=== PATIENT | female | born 1975 | race Caucasian/White ===

== ENCOUNTER 2017-12-27 22:55 | Emergency (ER) | payer SELFPAY ==
[~2017-12-27] VITALS: Ht 167.6 cm; Wt 66.8 kg
[2017-12-27] MEDS ORDERED: PREN-154 PO (23:14)
[2017-12-28 01:34] LABS: HEMATOCRIT 37.5 % (36-46); HEMOGLOBIN 12.9 g/dL (12.0-16.0); MEAN CORPUSCULAR HEMOGLOBIN 32.5 pg (26.0-34.0); MEAN CORPUSCULAR HGB CONC 34.3 G/dL (31.0-37.0); MEAN CORPUSCULAR VOLUME 95 fL (80-100); PLATELET COUNT (AUTO) 298 K/uL (150-450); RED BLOOD CELL COUNT(AUTO) 3.96 MIL/uL (4.00-5.20); RED CELL DISTRIBUTION WIDTH 13.6 % (11.5-14.5)
[2017-12-28 02:17] VITALS: BP 121/78
[2017-12-28 02:20] LABS: BAND NEUTROPHILS % (MANUAL) 0 % (0-5); LYMPHOCYTES % (MANUAL) 65 % (22-44); MONOCYTES % (MANUAL) 5 % (2-9); SEGMENTED NEUTROPHILS % 30 % (40-70)
== END 2017-12-28 02:46 | disposition home or self-care (01) ==
LOC: EMS 22:56
DX: O20.0 Threatened abortion (principal); Z3A.01 Less than 8 weeks gestation of pregnancy
CPT/HCPCS: 76801; 76817; 86901; 99285

== ENCOUNTER 2018-02-22 02:31 | Emergency (ER) | payer MEDICAID, OTHER ==
[~2018-02-22] VITALS: Ht 167.6 cm; Wt 71.8 kg
[~2018-02-22 02:31] MED LIST: PREN-154 PO
[2018-02-22] MEDS: ONDANSETRON HCL 4 MG/2 ML VIAL IVP ONE (05:06)
[2018-02-22] MEDS: SODIUM CHLORIDE 0.9% 1,000 ML IV ONE (05:06)
[2018-02-22] MEDS: MORPHINE SULFATE 4 MG/ML SYRINGE IVP ONE (05:06)
[2018-02-22 05:41] LABS: APPEARANCE,URINE CLOUDY (CLEAR); BASOPHILS % (AUTO) 0.3 % (0.0-2.0); BILIRUBIN,URINE NEGATIVE (NEGATIVE); EOSINOPHILS % (AUTO) 0.5 % (1.0-6.0); GLUCOSE, URINE (UA) NEGATIVE (NEGATIVE); HEMOGLOBIN 14.1 g/dL (12.0-16.0); KETONES,URINE NEGATIVE (NEGATIVE); LEUKOCYTE ESTERASE ,URINE NEGATIVE (NEGATIVE); LYMPHOCYTES # (AUTO) 1.7 K/uL (1.0-4.8); LYMPHOCYTES % (AUTO) 19.9 % (22.0-44.0); MEAN CORPUSCULAR HEMOGLOBIN 32.8 pg (26.0-34.0); MEAN CORPUSCULAR HGB CONC 34.4 G/dL (31.0-37.0); MEAN CORPUSCULAR VOLUME 95 fL (80-100); MONOCYTES # (AUTO) 0.5 K/uL (0.1-1.0); MONOCYTES % (AUTO) 5.6 % (2.0-9.0); NEUTROPHILS # (AUTO) 6.2 K/uL (1.8-7.7); NEUTROPHILS % (AUTO) 73.7 % (40.0-70.0); NITRATE,URINE POSITIVE (NEGATIVE); OCCULT BLOOD,URINE TRACE (NEGATIVE); PLATELET COUNT (AUTO) 286 K/uL (150-450); PROTEIN,URINE NEGATIVE (NEGATIVE); RED CELL DISTRIBUTION WIDTH 13.7 % (11.5-14.5); UROBILINOGEN,URINE 0.2 mg/dL (<=1.0)
[2018-02-22 05:46] LABS: ANION GAP 11 mmol/L (8-16); CALCIUM, TOTAL 9.3 mg/dL (8.8-10.5); CARBON DIOXIDE 27 mmol/L (22-29); CHLORIDE 101 mmol/L (98-107); CREATININE 0.78 mg/dL (0.60-1.30); GLOMERULAR FILTR. RATE CALC > 60 mL/min (>60); GLUCOSE,RANDOM 128 mg/dL (70-110); POTASSIUM 4.2 mmol/L (3.5-5.1); SODIUM SERUM 139 mmol/L (136-145); UREA NITROGEN, BLOOD 12 mg/dL (7-18)
[2018-02-22 05:53] LABS: ALANINE AMINOTRANSFERASE 37 U/L (12-78); ALBUMIN 4.4 g/dL (3.4-5.0); ALKALINE PHOSPHATASE 68 U/L (46-116); ASPARTATE AMINOTRANSFERASE 23 U/L (15-37); BACTERIA,URINE Many /HPF (None Seen); BILIRUBIN,TOTAL 0.4 mg/dL (0.1-1.0); SQUAMOUS EPITHELIAL CELL,UR Rare /LPF (None Seen)
[2018-02-22] MEDS: KETOROLAC TROMETHAMINE 30 MG/ML VIAL IVP ONE (06:59)
[2018-02-22] MEDS ORDERED: LEVO50 PO (07:10)
[2018-02-22] MEDS ORDERED: METF500T6 PO (07:10)
[2018-02-22 09:12] VITALS: BP 135/85
== END 2018-02-22 09:21 | disposition home or self-care (01) ==
LOC: EMS 02:31
DX: R51 Headache (principal); Z90.49 Acquired absence of other specified parts of digestive tract; Z98.890 Other specified postprocedural states
CPT/HCPCS: 36415; 70450; 80053; 81001; 81025; 84703; 85025; 87077; 87086; 87186; 96374; 96375; 99285; J1885; J2270; J2405; J7030

== ENCOUNTER 2018-10-26 16:49 | Emergency (ER) | payer OTHER ==
[~2018-10-26] VITALS: Ht 167.6 cm; Wt 64.5 kg
[~2018-10-26 16:49] MED LIST changes: +LEVO50 PO; +METF-960 PO; -PREN-154 PO
[2018-10-26] MEDS ORDERED: IBUPROFEN 600 MG TABLET PO ONE (20:00)
[2018-10-26 20:08] VITALS: BP 130/79
== END 2018-10-26 20:10 | disposition home or self-care (01) ==
LOC: EMS 16:50
DX: S62.634A Displaced fracture of distal phalanx of right ring finger, initial encounter for closed fracture (principal); Z90.49 Acquired absence of other specified parts of digestive tract; W19.XXXA Unspecified fall, initial encounter; Y93.89 Activity, other specified; Y92.89 Other specified places as the place of occurrence of the external cause; Y99.8 Other external cause status